=== PATIENT | female | born 1960 | race Caucasian/White ===

== ENCOUNTER 2017-10-12 10:54 | Emergency (ER) | payer OTHER ==
[~2017-10-12] VITALS: Ht 160 cm; Wt 68.2 kg
[2017-10-12 11:13] VITALS: BP 158/98; PULSE 82; RESP 18; TEMP 98.8; O2SAT 100
[2017-10-12] MEDS ORDERED: LISI-519 PO (11:14)
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
[2017-10-12] MEDS ORDERED: IBUP1TAB7 PO (13:16)
[2017-10-12] MEDS ORDERED: CYCL10TA PO (13:16)
== END 2017-10-12 13:43 | disposition home or self-care (01) ==
LOC: PHEFT 10:54
DX: S39.012A Strain of muscle, fascia and tendon of lower back, initial encounter (principal); V49.49XA Driver injured in collision with other motor vehicles in traffic accident, initial encounter; R51 Headache; I10 Essential (primary) hypertension
CPT/HCPCS: 70450; 72110; 99284